=== PATIENT | female | born 1965 | race Caucasian/White ===

== ENCOUNTER → 2019-04-21 | Emergency (ER) | payer OTHER ==
[~2019-04-21] VITALS: Ht 157.5 cm; Wt 63.5 kg
== END | disposition left against medical advice (07) ==
LOC: ER 22:44
DX: Z53.20 Procedure and treatment not carried out because of patient's decision for unspecified reasons (principal)

== ENCOUNTER 2020-08-23 12:48 | Outpatient (CLI) | payer OTHER | END 2020-08-23 13:07 | disposition home or self-care (01) | LOC: NUCLEAR 12:48 | PROVIDERS: ATTEND Internal Medicine | DX: M81.0 Age-related osteoporosis without current pathological fracture (principal); F32.0 Major depressive disorder, single episode, mild; F41.8 Other specified anxiety disorders; M79.7 Fibromyalgia; E03.8 Other specified hypothyroidism; E55.9 Vitamin D deficiency, unspecified; E66.8 Other obesity; M46.47 Discitis, unspecified, lumbosacral region; I11.9 Hypertensive heart disease without heart failure; N92.4 Excessive bleeding in the premenopausal period ==